=== PATIENT | male | born 2000 | race Caucasian/White ===

== ENCOUNTER 2019-04-28 15:48 | Emergency (ER) | payer MEDICAID ==
[2019-04-28] MEDS: BACITRACIN 0.9 GM OINT TOP (18:12)
[2019-04-28] MEDS: LIDOCAINE 1% (MDV) 10 ML INJ INJ (18:12)
== END 2019-04-28 18:15 | disposition home or self-care (01) ==
LOC: FTE 15:48
DX: S01.01XA Laceration without foreign body of scalp, initial encounter (principal); V18.4XXA Pedal cycle driver injured in noncollision transport accident in traffic accident, initial encounter
CPT/HCPCS: 12002; 99283-25

== ENCOUNTER 2019-04-30 19:14 | Emergency (ER) | payer MEDICAID | END 2019-05-01 19:33 | disposition home or self-care (01) | LOC: E/R 05-01 19:33 | DX: Z48.01 Encounter for change or removal of surgical wound dressing (principal) | CPT/HCPCS: 99281; Z7502 ==

== ENCOUNTER 2019-05-05 20:23 | Emergency (ER) | payer SELFPAY, MEDICAID | END 2019-05-05 21:45 | disposition left against medical advice (07) | LOC: FTE 20:23 | DX: Z53.21 Procedure and treatment not carried out due to patient leaving prior to being seen by health care provider (principal) ==

== ENCOUNTER 2019-05-06 17:54 | Emergency (ER) | payer MEDICAID | END 2019-05-06 18:15 | disposition home or self-care (01) | LOC: E/R 17:54 | DX: Z48.02 Encounter for removal of sutures (principal) | CPT/HCPCS: 99281; Z7502 ==

== ENCOUNTER 2019-05-10 17:32 | Emergency (ER) | payer MEDICAID | END 2019-05-10 18:20 | disposition home or self-care (01) | LOC: FTE 17:32 | DX: Z48.01 Encounter for change or removal of surgical wound dressing (principal) | CPT/HCPCS: 99281; Z7502 ==